=== PATIENT | male | born 1975 | race Caucasian/White ===

== ENCOUNTER 2021-10-19 11:55 | Emergency (ER) | payer MEDICAID, SELFPAY ==
--- NOTE | 2021-10-19 12:17 | ED_ITS ---
HPI - Skin/Abscess/Foreign Bdy General Stated complaint: ABSCESS R FOREARM,IVDA,FROM DETOX PER EMS Time Seen by Provider: 10/19/21 12:12 Source: patient and EMS Mode of arrival: EMS Limitations: no limitations History of Present Illness HPI narrative: Patient is a 46 year old male presenting to the emergency department today with a right forearm abscess. Patient states that he used IV drugs in his right forearm awhile ago and has had these 2 abscesses for the last 4 days. Patient states that he has been trying to drain it at the detox facility he is. Patient denies any dizziness, lightheadedness, abdominal pain, nausea, vomiting, fever, chills, blurry vision, double vision, loss of vision, chest pain, difficulty breathing, shortness of breath, back pain, night sweats, pain with urination, increased urinary frequency, increased urinary urgency, blood in his urine or stool, syncope or a near syncopal episode, recent trauma or falls, bowel incontinence, bladder incontinence, bowel retention, bladder retention, or any other complaints at this time. Patient states that he has a history of diabetes which is poorly controlled. MD complaint: abscess/boil Onset (ago): day(s) Tetanus up to date: unsure Location: [facility] Treatments prior to arrival: attempted to drain pus at home Related Data Allergies Allergy/AdvReac Type Severity Reaction Status Date / Time gadobutrol [From [facility]] Allergy Unknown NAUSEA & Unverified 05/14/20 17:50 VOMITING Review of Systems Constitutional: Constitutional: Reports no additional constitutional complaints, Denies chills, Denies fever(s) and Denies night sweats Eyes: Eyes: Reports no additional eye complaints, Denies blurry vision, Denies change in vision, Denies diplopia, Denies eye discharge, Denies loss of vision and Denies eye pain ENT: Denies dizziness Cardiovascular: Cardiovascular: Reports no additional cardiovascular complaints, Denies chest pain, Denies lightheadedness, Denies Loss of Consciousness and Denies dyspnea Respiratory: Respiratory: Reports no additional respiratory complaints and Denies dyspnea Gastrointestinal: Gastrointestinal: Reports no additional gastrointestinal complaints, Denies abdominal pain, Denies melena, Denies hematochezia, Denies change in bowel habits and Denies change in stool character Genitourinary: Genitourinary: Reports no additional male genitourinary complaints, Denies hematuria, Denies oliguria, Denies difficulty urinating, Denies dysuria, Denies urinary frequency, Denies urinary hesitancy, Denies urinary incontinence and Denies urinary urgency Musculoskeletal: Musculoskeletal: Reports no additional musculoskeletal complaints, Denies numbness and Denies tingling Integumentary/Breasts: Comments: right forearm abscess Neurologic: Denies dizziness, Denies loss of vision, Denies numbness and Denies tingling Psychiatric: Psychiatric: Reports no additional psychiatric complaints Endocrine: Endocrine: Reports no additional endocrine complaints Hematologic/Lymphatic: Hematologic/Lymphatic: Reports no additional hematologic/lymphatic complaints Allergic/Immunologic: Allergic/Immunologic: Reports no additional allergic/immunologic complaints PMFSH Past Medical History Attestation statement: The following information was validated with the patient. Physical Exam Const: General: cooperative, no acute distress, alert and awake Nutritional Appearance: well nourished Orientation/consciousness: patient oriented x3 Limitations: no limitations HENMT: Head: Yes normal to inspection and Yes atraumatic Ears: hearing grossly normal bilaterally and external ears normal General nose exam: Normal external nose present, no nasal discharge noted and no epistaxis Face and sinus: Yes normal facial exam, No abrasion and No laceration Mouth: Normal oral and palatal mucosa present, no drooling and no muffled voice Eyes: General: appearance normal, both eyes and all related structures Periorbital: periorbital findings normal Eyelids: Yes eyelids normal Conjunctivae: conjunctivae normal Pupils: Equal, round and reactive pupils present EOM: EOMs intact bilaterally Neck: Neck: Yes normal visual inspection, Yes full ROM and Yes no lymphadenopathy Chest: Chest palpation & inspection: normal inspection of the chest Resp: Effort & Inspection: normal respiratory effort and able to speak in complete sentences Auscultation: clear to auscultation bilaterally Cardio: Rate: regular rate Rhythm: regular rhythm GI: Inspection: Yes normal to inspection Skin: Other: 2 large abscessed areas to the right forearm with surrounding erythema, warmth, and red streaking Neuro: General: patient oriented x3 and moves all extremities Cranial nerves: Yes Equal, round and reactive pupils present Cognition (Neuro): normal cognition Motor exam (neuro): 5/5 motor strength present throughout Sensory Exam: Normal double simultaneous stimulation for sensation Coordinati on: [id number] test normal Extrem: General: Yes normal to inspection, Yes full ROM and Yes capillary refill normal Psych: Appearance: grossly normal Mental Status: mental status grossly normal Affect: normal affect Attitude: cooperative Thought process: Normal thought process present Thought content: Normal thought content present Insight: Good insight present (Psych) MDM - Skin/Abscess/Foreign Bdy MDM Narrative Medical decision making narrative: Patient is a 46 year old male presenting to the emergency department today with 2 right forearm abscesses. Patient's physical exam showed 2 large, erythematous, and warm abscessed areas to the right forearm with red streaking up his arm. I explained my physical exam findings to the patient. I explained to the patient that this infection is likely a deep tissue infection due to his current presentation and with his POC glucose in the 400s, he would likely need to be admitted after we obtain further imaging and lab work. Patient initially agreed to a further work up and hospital admission for IV antibiotics and fluid therapy. However, I was informed before any testing could be performed or even an IV placed, that the patient eloped from the department. The patient was AOx4, steady on his feet, and of sound mind with decision making capability throughout his time in the emergency department. Differential Diagnosis Differential diagnosis: Likely abscess of skin or subcutaneous tissue Medical Records Attestation: I reviewed the patient's medical records. Discharge Plan Discharge Clinical Impression: Acute hyperglycemia, Abscess of forearm, Active intravenous drug use Patient Disposition: Elopement
[2021-10-19 12:21] VITALS: BP 158/74; BP 158/93; PULSE 74; PULSE 80; RESP 16; TEMP 36.9; O2SAT 98; BMI 29.8
== END 2021-10-19 12:30 | disposition left against medical advice (07) ==
PROVIDERS: Emergency Provider Emergency Medicine
DX: L02.413 Cutaneous abscess of right upper limb (principal); E11.65 Type 2 diabetes mellitus with hyperglycemia; F19.10 Other psychoactive substance abuse, uncomplicated
CPT/HCPCS: 99283

== ENCOUNTER 2021-10-19 19:05 | Emergency (ER) | payer MEDICAID, SELFPAY ==
--- NOTE | ~2021-10-19 | US_ITS ---
EXAMINATION: ULTRASOUND EXTREMITY NONVASCULAR CLINICAL INFORMATION: Right antecubital/forearm abscess COMPARISON: None TECHNIQUE: Targeted sonographic evaluation of the region of concern at the right antecubital region FINDINGS: There is a complex collection at the right medial antecubital area of swelling. Prominent peripheral vascularity. Internal septation. This measures 2.7 x 4.1 x 1.7 cm. There is a second area at the proximal forearm, distal to the larger collection, measuring 1 x 2 x 0.8 cm. US/US extremity nonvascular nelson IMPRESSION: There are 2 fluid collections identified at the antecubital region/proximal forearm, consistent with abscesses.
--- NOTE | ~2021-10-19 | XR_ITS ---
EXAMINATION: XR FOREARM, RIGHT CLINICAL INFORMATION: Right forearm redness. IV drug user. COMPARISON: None TECHNIQUE: AP and lateral views of the right forearm were obtained. FINDINGS: There is a linear radiopaque foreign body measuring 1.3 cm in length in the volar soft tissues at the level of the mid forearm overlying the mid radial diaphysis. There is diffuse soft tissue swelling. No acute osseous abnormality. No osseous erosion. Appropriate alignment at the elbow and wrist. XR/XR forearm RT 2V IMPRESSION: Linear radiopaque foreign body in the volar soft tissues of the forearm. Diffuse soft tissue swelling. No osseous abnormality.
[2021-10-19 20:28] VITALS: BP 144/97; PULSE 91; RESP 18; TEMP 37; O2SAT 99; BMI 31.7
--- NOTE | 2021-10-19 22:50 | PC.NURSE ---
This RN calling pt into a room from Triage. Pt states I need to smoke first. This RN advising pt that a room was available and I cannot hold his room while he smokes. Pt states Well I still need to smoke. Pt exiting the WR to smoke while this RN called another pt.
[2021-10-19 23:59] VITALS: BP 131/81; PULSE 81; RESP 14; TEMP 36.9; O2SAT 96
[2021-10-20 00:33] LABS: COVID-19 Test Negative (Negative); IDNOW Serial# 55D5AD1C
[2021-10-20] MEDS: Lidocaine HCl 2 % MPF 5 ML VIAL INFILTRATI ×2 (01:30)
--- NOTE | 2021-10-20 02:37 | ED.GENADULT ---
HPI - General Adult General Chief complaint: Skin/Abscess/Foreign Body Stated complaint: Abscess/detox? Time Seen by Provider: 10/19/21 23:55 Source: patient Mode of arrival: ambulatory Limitations: no limitations History of Present Illness HPI narrative: 46-year-old male presents to ED right forearm/antecubital abscess. Patient admits to injecting IV drug use into his arm. Patient denies any needle breaking into arm. Patient states having pus discharge from forearm and antecubital with swelling of upper extremity and warmth with redness. Patient signed out AMA from this morning for possible admission Related Data Previous Rx's Medication Instructions Recorded cephalexin 500 mg capsule 500 mg PO QID 7 Days #28 cap 10/20/21 doxycycline hyclate 100 mg capsule 100 mg PO BID 7 Days #14 cap 10/20/21 naproxen 500 mg tablet 500 mg PO BID PRN 10 Days #20 tab 10/20/21 Allergies Allergy/AdvReac Type Severity Reaction Status Date / Time gadobutrol [From GAD[facility]] Allergy Unknown NAUSEA & Verified 10/19/21 20:28 VOMITING Review of Systems Review of Systems: Abscess Yes all other systems are reviewed and are negative [facility] Social History Social History Advance Directives: No Physical Exam ED Vital Signs: Vital Signs - 24 hr 10/19/21 20:28 10/19/21 23:59 Temperature 98.6 F 98.4 F Pulse Rate 91 81 Respiratory Rate 18 14 Blood Pressure 144/97 H 131/81 Pulse Oximetry 99 96 BMI result Body Mass Index 31.7 Const General: cooperative, healthy appearing, comfortable, no acute distress and well developed Orientation/consciousness: patient oriented x3 HENMT Head: Yes normal to inspection, Yes No palpable skull fracture present, Yes normocephalic, Yes atraumatic and No abrasion Eyes General: appearance normal, both eyes and all related structures Neck Neck: Yes normal visual inspection, Yes full ROM, Yes no lymphadenopathy, Yes no meningeal signs, Yes trachea midline, Yes supple, No anterior neck swelling and No tender Chest Chest palpation & inspection: normal inspection of the chest and normal palpation of entire chest wall Cardio Jugular venous distension: no JVD Heart sounds: S1 normal heart sound present and S2 normal heart sound present GI Inspection: Yes normal to inspection and No abdominal wall ecchymosis Palpation (GI): Soft to palpation, not firm, nontender, no guarding and not rigid General: No CVA tenderness and Yes no CVA tenderness Back/Spine/Pelvis Back: no CVA tenderness, No CVA tenderness and No back tenderness Skin General skin exam: no rashes or lesions noted and elasticity normal Neuro General: patient oriented x3, gait normal, no meningeal signs and CN's II-XI intact bilaterally Cranial nerves: Yes CN's II-XII intact bilaterally Extrem Other: Vascular/motor/neuro exam intact of right upper extremity Elbow/forearm/wrist images: 1. Positive for erythema, slight swelling, and tenderness the patient with pus drainage. 2. Positive for erythema, slight swelling, and tenderness the patient with pus drainage. Psych Appearance: grossly normal, well kempt and not disheveled Course Course Course Narrative: Will do x-ray, labs, and ultrasound tract to check depth of abscess. Reevaluation(s) Reevaluation #1: Ultrasound shows 2 abscesses. Wound clean with sterile saline and Betadine iodine. Ultrasound was used to locate abscess. 10 mL lidocaine 2% was used for anesthesia of antecubital and forearm abscess. Size 11 blade made to incision below antecubital area. Large amount of green yellow pus was drained. Forearm abscess was drained and only blood came out. Pressure dressing placed. Spoke with hospitalist for possible admission she recommends following labs and if patient labs are normal and negative for sepsis and patient could be discharged with oral antibiotics and follow up with surgery for foreign body in forearm. Signed out to Dr. Simmons Time: 02:49 Medical Decision Making [facility] Narrative Medical decision making narrative: abscesses, cellulitis Lab Data Labs: Lab Results 10/20/21 Range/Units 00:01 COVID-19 ([facility]) Negative (Negative) COVID-19 Clin Com See Note Discharge Plan Discharge Clinical Impression: Cellulitis, Abscess of skin or subcutaneous tissue Patient Disposition: Still a Patient Instructions: Cellulitis (DC), Abscess (ED) Additional Instructions: You will need follow-up with outpatient surgery. Return to the ED immediately for worsening redness, increased swelling, profuse post discharge, foul odor, fever, chills, or any other concerning symptoms. Prescriptions: New cephalexin 500 mg capsule 500 mg PO QID 7 Days Qty: 28 0RF doxycycline hyclate 100 mg capsule 100 mg PO BID 7 Days Qty: 14 0RF naproxen 500 mg tablet 500 mg PO BID PRN (Reason: pain) 10 Days Qty: 20 0RF Referrals: Quentin Bower MD [Physician] - 2 days (Right forearm abscess. Forearm needle) Print Language: Romansh
[2021-10-20 02:58] VITALS: PULSE 80; RESP 20; O2SAT 98
[2021-10-20 03:10] LABS: MANUAL DIFF FLAG NO
[2021-10-20] MEDS: Ibuprofen 800 MG TABLET PO (03:23)
[2021-10-20 03:26] LABS: Basophils Absolute Auto 0.1 X10*3/uL (0.0-0.2); Basophils Percent Auto 0.8 % (0-2); Eosinophils Absolute Auto 0.2 X10*3/uL (0.0-0.4); Eosinophils Percent Auto 1.4 % (0-4); Hematocrit 39.7 % (42.0-52.0); Hemoglobin 13.3 g/dl (14.0-18.0); Imm Gran Abs Auto 0.48 X10*3/uL (0.00-0.03); Imm Gran Pct Auto 4.1 % (0.0-0.4); Lymphocytes Absolute Auto 1.9 X10*3/uL (1.2-4.9); Lymphocytes Percent Auto 16.8 % (20-40); Mean Corpuscular HGB Conc 33.5 g/dl (31.0-36.0); Mean Corpuscular Hemoglobin 23.2 pg (27.0-33.0); Mean Corpuscular Volume 69.3 fL (80.0-98.0); Monocytes Absolute Auto 0.7 X10*3/uL (0.1-1.2); Monocytes Percent Auto 5.9 % (2-11); NRBC Pct Auto 0.9 /100WBC (0.0-0.2); Neutrophils Absolute Auto 8.2 x10*3/uL (2.0-8.3); PLT CLUMP 1; Platelet Count 264 X10*3/uL (160-400); Red Blood Count 5.73 X10*6/uL (4.60-5.80); SCAN SMEAR FLAG 1; White Blood Count 11.6 X10*3/uL (4.8-10.8)
--- NOTE | 2021-10-20 05:07 | PC.NURSE ---
Nathan segundo contacted re pt bed placement, no answer, voicemail left. Pt states he was told they'll probably have a bed and that he will return there now that medical eval is complete
== END 2021-10-20 05:14 | disposition home or self-care (01) ==
PROVIDERS: Emergency Provider Student in an Organized Health Care Education/Training Program
DX: L02.413 Cutaneous abscess of right upper limb (principal); L03.113 Cellulitis of right upper limb; Z20.822 Contact with and (suspected) exposure to COVID-19
CPT/HCPCS: 10061; 73090; 76882; 85025; 87635; 99283; 99284